=== PATIENT | male | born 1935 | race Caucasian/White ===

== ENCOUNTER 2016-10-20 17:26 | Emergency (ER) | payer MEDICARE ==
--- NOTE | 2016-10-20 17:48 | PD ---
HPI Chief Complaint: Chest Pain Time Seen by Provider: 17:34 Travel History International Travel<30 days: No Contact w/Intl Traveler<30days: No Traveled to known affect area: No History of Present Illness HPI This patient complains of chest pain. Duration is 24 hours. It's a sharp stabbing pleuritic pain in the left low chest. He can easily reproduce it with a deep breath. It lasted seconds and resolves then. Severity is moderate. No alleviating factors. It is not exertional. PFSH Past Medical History Diminished Hearing: No Hypertension: Yes Inguinal Hernia: Yes (BILAT REPAIR) Tetanus Vaccination: < 5 Years Influenza Vaccination: No Past Surgical History Other Surgery: Yes (HERNIA REPAIR X 2 [id number] LT GROIN, RT GROIN -2011) Social History Alcohol Use: Yes (1-2 BEERS DAILY) Tobacco Use: No Substance Use: No Allergies-Medications (Allergen,Severity, Reaction): Coded Allergies: No Known Allergies (Verified , 10/20/16) Reported Meds & Prescriptions Reported Meds & Active Scripts Active No Active Prescriptions or Reported Medications Review of Systems General / Constitutional: No: Fever Eyes: No: Visual changes HENT: No: Headaches Cardiovascular: Positive: Chest Pain or Discomfort Respiratory: No: Shortness of Breath Gastrointestinal: No: Abdominal Pain Genitourinary: No: Dysuria Musculoskeletal: No: Pain Skin: No Rash Neurologic: No: Weakness Psychiatric: No: Depression Endocrine: No: Polydipsia Hematologic/Lymphatic: No: Easy Bruising Physical Exam Narrative GENERAL: Well-nourished, well-developed patient in no apparent distress. SKIN: Focused skin assessment reveals no rash and nodules. Skin is Warm and dry. HEAD: Atraumatic. Normocephalic. EYES: Pupils equal and round. No scleral icterus. No injection or drainage. ENT: No nasal bleeding or discharge. Mucous membranes pink and moist. NECK: Trachea midline. No JVD. CARDIOVASCULAR: Regular rate and rhythm. No murmur appreciated. RESPIRATORY: No accessory muscle use. Clear to auscultation. Breath sounds equal bilaterally. GASTROINTESTINAL: Abdomen soft, non-tender, nondistended. Hepatic and splenic margins not palpable. MUSCULOSKELETAL: No obvious deformities. No clubbing. No cyanosis. No edema. NEUROLOGICAL: Awake and alert. No obvious cranial nerve deficits. Motor grossly within normal limits. Normal speech. PSYCHIATRIC: Appropriate mood and affect; insight and judgment normal. Data Data Last Documented VS Vital Signs Date Time Temp Pulse Resp B/P Pulse Ox O2 Delivery O2 Flow Rate FiO2 10/20/16 18:21 63 16 162/93 98 Room Air Orders Iv Access Insert/Monitor (10/20/16 17:40) Complete Blood Count With Diff (10/20/16 17:40) Basic Metabolic Panel (Bmp) (10/20/16 17:40) Prothrombin Time / Inr (Pt) (10/20/16 17:40) Act Partial Throm Time (Ptt) (10/20/16 17:40) Chest, Single Ap (10/20/16 ) Ct Pulmonary Angiogram (10/20/16 ) Labs Laboratory Tests Test 10/20/16 17:58 White Blood Count 6.4 TH/MM3 Red Blood Count 4.13 MIL/MM3 Hemoglobin 14.0 GM/DL Hematocrit 41.8 % Mean Corpuscular Volume 101.2 FL Mean Corpuscular Hemoglobin 33.8 PG Mean Corpuscular Hemoglobin 33.4 % Concent Red Cell Distribution Width 12.3 % Platelet Count 191 TH/MM3 Mean Platelet Volume 6.7 FL Neutrophils (%) (Auto) 51.3 % Lymphocytes (%) (Auto) 29.9 % Monocytes (%) (Auto) 10.7 % Eosinophils (%) (Auto) 6.8 % Basophils (%) (Auto) 1.3 % Neutrophils # (Auto) 3.3 TH/MM3 Lymphocytes # (Auto) 1.9 TH/MM3 Monocytes # (Auto) 0.7 TH/MM3 Eosinophils # (Auto) 0.4 TH/MM3 Basophils # (Auto) 0.1 TH/MM3 CBC Comment DIFF FINAL Differential Comment Prothrombin Time 12.2 SEC Prothromb Time International 1.1 RATIO Ratio Activated Partial 28.7 SEC Thromboplast Time Sodium Level 141 MEQ/L Potassium Level 3.8 MEQ/L Chloride Level 105 MEQ/L Carbon Dioxide Level 27.5 MEQ/L Anion Gap 9 MEQ/L Blood Urea Nitrogen 11 MG/DL Creatinine 0.73 MG/DL Estimat Glomerular Filtration 103 ML/MIN Rate Random Glucose 82 MG/DL Calcium Level 8.7 MG/DL MDM Medical Decision Making Medical Screen Exam Complete: Yes Emergency Medical Condition: Yes Medical Record Reviewed: Yes Differential Diagnosis PE, pleurisy, ACS Narrative Course I have reviewed the patient's electronic medical record. IV placed CBC is normal Metabolic profile is normal Coagulation studies are normal I reviewed his chest x-ray is normal I reviewed his EKG which shows sinus rhythm but no ST elevation Extended cardiac monitoring shows sinus rhythm without ectopy Workup so far is negative but he has a sharp stabbing pleuritic pain. It is clearly noncardiac and will not require inpatient cardiac evaluation. I would like to rule out PE however CT pulmonary angiogram has been ordered to evaluate for this. Case will be checked out to Dr. Ny to assist with disposition. Scripts No Active Prescriptions or Reported Meds Everardo Allan MD Oct 20, 2016 17:48
[2016-10-20 18:07] LABS: AUTOMATED NEUTROPHIL # 3.3 TH/MM3 (1.8-7.7); BASOPHIL # 0.1 TH/MM3 (0-0.2); BASOPHIL % 1.3 % (0.0-2.0); EOSINOPHIL # 0.4 TH/MM3 (0-0.4); EOSINOPHIL % 6.8 % (0.0-4.0); HEMATOCRIT 41.8 % (39.0-51.0); HEMO FLAGS DIFF FINAL; LYMPH % 29.9 % (9.0-44.0); LYMPHOCYTE # 1.9 TH/MM3 (1.0-4.8); MEAN CELL VOLUME 101.2 FL (80.0-100.0); MEAN CORPUSCULAR HEMOGLOBIN 33.8 PG (27.0-34.0); MEAN CORPUSCULAR HGB CONC 33.4 % (32.0-36.0); MONO % 10.7 % (0.0-8.0); NEUT % 51.3 % (16.0-70.0); PLATELET COUNT 191 TH/MM3 (150-450); RED BLOOD COUNT 4.13 MIL/MM3 (4.50-5.90); RED CELL DISTRIBUTION WIDTH 12.3 % (11.6-17.2); WHITE BLOOD COUNT 6.4 TH/MM3 (4.0-11.0)
[2016-10-20 18:18] LABS: CHLORIDE 105 MEQ/L (98-107); POTASSIUM 3.8 MEQ/L (3.5-5.1); SODIUM (NA) 141 MEQ/L (136-145)
[2016-10-20 18:20] LABS: ANION GAP 9 MEQ/L (5-15); BICARBONATE 27.5 MEQ/L (21.0-32.0); BLOOD UREA NITROGEN 11 MG/DL (7-18)
[2016-10-20 18:21] VITALS: BP 162/93; PULSE 63; RESP 16; O2SAT 98
[2016-10-20 18:23] LABS: APTT (PATIENT) 28.7 SEC (24.3-30.1); INTERNATIONAL NORMALIZED RATIO 1.1 RATIO; PROTHROMBIN TIME - PATIENT 12.2 SEC (9.8-11.6)
[2016-10-20 18:24] LABS: GLOMERULAR FILTRATION RATE 103 ML/MIN (>89)
--- NOTE | 2016-10-20 18:30 | RADHPO ---
EXAM DATE/TIME: 10/20/2016 17:56 [facility] COMPARISON: No previous studies available for comparison. INDICATIONS : Chest pain. MEDICAL HISTORY : Hypertension. SURGICAL HISTORY : None. ENCOUNTER: Initial ACUITY: 2 days PAIN SCORE: 3/10 LOCATION: Bilateral chest FINDINGS: A single view of the chest demonstrates the lungs to be symmetrically aerated without evidence of mas s, infiltrate or effusion. The cardiomediastinal contours are unremarkable. Osseous structures are intact. CONCLUSION: No acute disease. Rafa Zaman MD on October 20, 2016 at 18:28 Board Certified Radiologist. This report was verified electronically.
--- NOTE | 2016-10-20 19:05 | PD ---
Physical Exam Date Seen by Provider: Oct 20, 2016 Time Seen by Provider: 19:03 Narrative Accepted in transfer of care from Dr. Allan GENERAL: Well-developed well-nourished thin male in no acute distress no respiratory distress SKIN: Warm and dry. HEAD: Normocephalic. EYES: No scleral icterus. No injection or drainage. NECK: Supple, trachea midline. No JVD or lymphadenopathy. CARDIOVASCULAR: Regular rate and rhythm without murmurs, gallops, or rubs. Chest wall: tenderness to palpation RESPIRATORY: Breath sounds equal bilaterally. No accessory muscle use. GASTROINTESTINAL: Abdomen soft, non-tender, nondistended. Data Data Last Documented VS Vital Signs Date Time Temp Pulse Resp B/P Pulse Ox O2 Delivery O2 Flow Rate FiO2 10/20/16 18:21 63 16 162/93 98 Room Air Orders Iv Access Insert/Monitor (10/20/16 17:40) Complete Blood Count With Diff (10/20/16 17:40) Basic Metabolic Panel (Bmp) (10/20/16 17:40) Prothrombin Time / Inr (Pt) (10/20/16 17:40) Act Partial Throm Time (Ptt) (10/20/16 17:40) Chest, Single Ap (10/20/16 ) Ct Pulmonary Angiogram (10/20/16 ) Iohexol 350 Inj (Omnipaque 350 Inj) (10/20/16 19:14) Ketorolac Inj (Toradol Inj) (10/20/16 20:00) Troponin I (10/20/16 17:58) Labs Laboratory Tests Test 10/20/16 17:58 White Blood Count 6.4 TH/MM3 Red Blood Count 4.13 MIL/MM3 Hemoglobin 14.0 GM/DL Hematocrit 41.8 % Mean Corpuscular Volume 101.2 FL Mean Corpuscular Hemoglobin 33.8 PG Mean Corpuscular Hemoglobin 33.4 % Concent Red Cell Distribution Width 12.3 % Platelet Count 191 TH/MM3 Mean Platelet Volume 6.7 FL Neutrophils (%) (Auto) 51.3 % Lymphocytes (%) (Auto) 29.9 % Monocytes (%) (Auto) 10.7 % Eosinophils (%) (Auto) 6.8 % Basophils (%) (Auto) 1.3 % Neutrophils # (Auto) 3.3 TH/MM3 Lymphocytes # (Auto) 1.9 TH/MM3 Monocytes # (Auto) 0.7 TH/MM3 Eosinophils # (Auto) 0.4 TH/MM3 Basophils # (Auto) 0.1 TH/MM3 CBC Comment DIFF FINAL Differential Comment Prothrombin Time 12.2 SEC Prothromb Time International 1.1 RATIO Ratio Activated Partial 28.7 SEC Thromboplast Time Sodium Level 141 MEQ/L Potassium Level 3.8 MEQ/L Chloride Level 105 MEQ/L Carbon Dioxide Level 27.5 MEQ/L Anion Gap 9 MEQ/L Blood Urea Nitrogen 11 MG/DL Creatinine 0.73 MG/DL Estimat Glomerular Filtration 103 ML/MIN Rate Random Glucose 82 MG/DL Calcium Level 8.7 MG/DL Troponin I LESS THAN 0.02 NG/ML [facility] Medical Record Reviewed: Yes Supervised Visit with WILLI: No Interpretation(s) Last Impressions Chest X-Ray 10/20/16 0000 Signed Impressions: Service Date/Time: Thursday, October 20, 2016 17:56 - CONCLUSION: No acute disease. Rafa Zaman MD CT Angiography 10/20/16 0000 Signed Impressions: Service Date/Time: Thursday, October 20, 2016 18:53 - CONCLUSION: No evidence of pulmonary embolism Rafa Zaman MD Differential Diagnosis Accepted in transfer of care from Dr. Allan please refer to his dictation Narrative Course Accepted in transfer of care from Dr. Allan for follow-up of pending CTA and patient disposition At 7:50 PM patient with spouse at bedside informed of imaging results specifically CT pulmonary angiogram which reveals no PE or acute process. Patient given one-time dose of Toradol 30 mg IV in the emergency department. On physical exam lung sounds are clear heart sounds regular rate rhythm normal S1-S2 no murmurs rubs or gallops and chest wall discomfort is reproducible with deep inspiration, movement, and with palpation. Pain with movement, deep inspiration, and palpation improved after toradol-- wants to be discharged to home. Diagnosis Primary Impression: Chest pain, musculoskeletal Referrals: Primary Care Physician 2 days Patient Instructions: General Instructions Additional Instruction: May use as tolerated [id number] acetaminophen/Tylenol every 4-6 hours as needed for minor pain or for fever 100.4F or greater May use as needed as tolerated [id number] ibuprofen/Advil/Motrin every 6- 8 hours as needed for pain associated with inflammation for fever 100.4F or greater Follow-up with your primary care provider call office on Sunday to schedule follow-up appointment Return to the emergency department for any concerns recurrent pain fever or change in condition Scripts No Active Prescriptions or Reported Meds Disposition: 01 DISCHARGE HOME Condition: Stable Dasha Ny MD Oct 20, 2016 19:05
[2016-10-20] MEDS ORDERED: IOHEXOL 350 MG/ML 10 ML VIAL (for RAD DIAG) IV ONE (19:14)
[2016-10-20 19:35] VITALS: BP 162/101; PULSE 61; RESP 18; TEMP 97.8; O2SAT 99
--- NOTE | 2016-10-20 19:36 | RADHPO ---
EXAM DATE/TIME: 10/20/2016 18:53 [facility] COMPARISON: No previous studies available for comparison. INDICATIONS : Chest pain with cough beginning today. IV CONTRAST: 80 cc Omnipaque 350 (iohexol) IV RADIATION DOSE: 8.59 CTDIvol (mGy) MEDICAL HISTORY : Hypertension. SURGICAL HISTORY : None. ENCOUNTER: Initial ACUITY: 1 day PAIN SCALE: 6/10 LOCATION: chest TECHNIQUE: Volumetric scanning of the chest was performed using a pulmonary embolism protocol MIP images were re constructed. Using automated exposure control and adjustment of the mA and/or kV according to patien t size, radiation dose was kept as low as reasonably achievable to obtain optimal diagnostic quality images. FINDINGS: PULMONARY ARTERIES: No filling defects are seen in the pulmonary arteries through the segmental level. LUNGS: There is no consolidation or pneumothorax . No concerning pulmonary nodule is visualized. PLEURAE: There is no pleural thickening or pleural effusion. MEDIASTINUM: There is good visualization of the great vessels of the middle mediastinum. No evidence of mediastin al or hilar adenopathy/mass. MUSCULOSKELETAL: Within normal limits for patient age. MISCELLANEOUS: The visualized upper abdominal organs demonstrate no acute abnormality. CONCLUSION: No evidence of pulmonary embolism Rafa Zaman MD on October 20, 2016 at 19:33 Board Certified Radiologist. This report was verified electronically.
[2016-10-20] MEDS ORDERED: KETOROLAC TROMETHAMINE 30 MG/ML (IVP) VIAL IV PUSH ONE (20:00)
[2016-10-20 20:35] VITALS: BP 154/96; PULSE 62; RESP 18; O2SAT 98
[2016-10-20 21:27] VITALS: BP 149/94; PULSE 62; RESP 18; O2SAT 98
--- NOTE | 2016-10-21 14:36 | EKG ---
Date Performed: 10/20/2016 Time Performed: 17:25:54 PTAGE: 81 years EKG: Sinus rhythm Leftward axis Since previous tracing, no significant change noted Borderline ECG PREVIOUS TRACING : 02/05/2016 12.39 DOCTOR: Lloyd Villatoro Interpretating Date/Time 10/21/2016 14:34:59
== END 2016-10-20 21:36 | disposition home or self-care (01) ==
LOC: PHED 17:26
DX: R07.89 Other chest pain (principal); I10 Essential (primary) hypertension
CPT/HCPCS: 71010; 71275; 80048; 84484; 85025; 85610; 85730; 93005; 96374; 99284; J1885; Q9967